=== PATIENT | male | born 1990 | race Caucasian/White ===

== ENCOUNTER 2016-05-27 22:32 | Emergency (ER) | payer BC ==
[2016-05-27 22:40] VITALS: RESP 18; TEMP 99; O2SAT 97
[2016-05-27] MEDS ORDERED: ONDANSETRON 4 MG/2 ML VIAL IVP ONE ×2 (23:02→23:56)
[2016-05-27] MEDS ORDERED: NS 1,000 ML IV ONE (23:02)
--- NOTE | 2016-05-27 23:04 | EDPHY ---
H & P Stated Complaint: pt c/o n/v/d x 3 days, abd pain beginning today Source: Patient Exam Limitations: No limitations - Medical/Surgical History Hx Asthma: No Hx Chronic Respiratory Disease: No Hx Diabetes: No Hx Cardiac Disease: No Hx Renal Disease: No Hx Cirrhosis: No Hx Alcoholism: No Hx HIV/AIDS: No Hx Splenectomy or Spleen Trauma: No Other PMH: BP d/o with psychotic features, QUOC, PTSD. Hx rhinoplasty for deviated septum, arm fx as child, vasovagal syncope, FAS per pt report. - Social History Smoking Status: Current every day smoker HPI/ROS: CHIEF COMPLAINT: Nausea vomiting, abdominal discomfort HISTORY OF PRESENT ILLNESS: flu-like symptoms earlier this week that have now become nausea and vomiting with some abdominal discomfort. He feels that he cannot keep anything down including liquids over the past 2 days per he has no chest pain or shortness of breath. No cough. He does have body aches without headache. He feels that he has something wrong and cannot explain it. No neck pain or stiffness. No trauma or injury. No bloody stools or emesis. He notes persistent vomiting matter what he tries to eat or drink. No other Predictable modifying factors. No other associated complaints or modifying factors. REVIEW OF SYSTEMS: Ten systems reviewed and are negative unless otherwise noted in the HPI EXAMINATION General Appearance: Alert, no distress Head: normocephalic, atraumatic Eyes: Pupils equal and round, no conjunctival pallor or injection. EOMs intact ENT, Mouth: Mucous membranes moist. Uvula midline. No lesions or edema. Neck: Normal inspection, supple, non-tender Respiratory: Lungs are clear to auscultation . No wheezing, rhonchi or crackles. Cardiovascular: Regular rate and rhythm . no murmur. Pulses intact distally. Gastrointestinal: Abdomen is soft and nontender . No CVA tenderness. No tympany. No rigidity. Nonacute abdomen. Neurological: A&O, nonfocal, normal gait Skin: Warm and dry, no rash Extremities: Nontender, no pedal edema Psychiatric: Mood and affect normal DIFFERENTIAL DIAGNOSES: Including but not limited to influenza, viral illness, nausea vomiting, dehydration, electrolyte disturbance, cholecystitis, gastritis MDM: 11:00 p.m. flu-like symptoms including nausea vomiting or body aches with a completely normal examination. Vital signs are well within normal limits. He is afebrile and nontoxic in appearance. Very complex history and personality without any acute concerns or findings on examination. Laboratory studies have been ordered to verify electrolyte status given his vomiting. I suspect this will be a viral illness and we will provide IV fluid resuscitation 11:45 p.m. notified that the patient is actively vomiting. I have ordered additional Zofran 4 mg IV as well as Phenergan 25 mg IM. Will monitor and administer a 2nd L of IV fluid. Laboratory studies are within normal limits without any abnormalities. 12:45 a.m. I have re-evaluated the patient. He is nauseated but not actively vomiting at this time. He says the medications are helping but not completely. He does complain of epigastric and generalized pain at this time. He did not inform me of this earlier, he says that it is difficult for him to quantify this pain. When distracted is examination appears benign, but I have ordered a CT abdomen and pelvis with contrast. CT scan of the abdomen and pelvis was read as normal. No acute findings. He remains nauseated but is not vomiting. He is asking to try some crackers and liquids. I discussed discharge home versus admission for observation and IV fluid resuscitation. The patient declined admission and asked to be discharged home. I do feel he is stable for doing so, and I do not feel he needs to be admitted to the hospital at this time. He will be discharged home with 2 forms of nausea medication and instructions to follow up with primary care physician. He is also instructed to return to the ER for greater than 24 hours of vomiting without keeping liquids down. He is also instructed to return to the ER for worsening pain or persistent fever. He is comfortable with this plan and discharged home in stable condition. He is tolerating liquids prior to discharge home. SUPERVISION: Patient was evaluated in conjunction with the supervising physician. Please see their note for details. (Rudi Hutchins) Constitutional: Initial Vital Signs Temperature (C) 99.0 F 05/27/16 22:37 Heart Rate 67 05/27/16 22:37 Respiratory Rate 18 05/27/16 22:37 Blood Pressure 162/88 H 05/27/16 22:37 O2 Sat (%) 97 05/27/16 22:37 O2 Delivery Mode Room Air Allergies/Adverse Reactions: amoxicillin Allergy (Verified 05/27/16 22:42) diphenhydramine HCl [From Benadryl] Allergy (Verified 05/27/16 22:40) guaifenesin [From Robitussin] Allergy (Verified 05/27/16 22:40) antipsychotics Allergy (Uncoded 05/27/16 22:40) Home Medications: Medication Instructions Recorded [facility] [Eskalith Cr 900 mg PO DAILY #60 tab 03/28/16 450 mg (*)] Zyprexa 05/27/16 Ondansetron Odt [Zofran Odt 4 mg 4 mg PO Q6 PRN #12 tab 05/28/16 (*)] Promethazine HCl [Phenergan 25mg 25 mg PO Q8 PRN #12 tab 05/28/16 (*)] Medical Decision Making ED Course/Re-evaluation: PHYSICIAN DOCUMENTATION: The patient was evaluated and managed by the Physician Laminator Hand. My co- signature indicates that I have reviewed this chart and I agree with the findings and plan of care as documented. I am the secondary supervising physician. (Shirin Malik) - Data Points Laboratory Results: Laboratory Results 05/27/16 23:20 05/27/16 23:20 Medications Given: Discontinued Medications Sodium Chloride (Ns) 1,000 mls @ 0 mls/hr IV ONCE ONE PRN Reason: Wide Open Stop: 05/27/16 23:03 Last Admin: 05/27/16 23:24 Dose: 1,000 mls Sodium Chloride (Ns) 1,000 mls @ 0 mls/hr IV ONCE ONE PRN Reason: Wide Open Stop: 05/28/16 00:43 Last Admin: 05/28/16 00:44 Dose: 1,000 mls Ondansetron HCl (Zofran) 4 mg IVP EDNOW ONE Stop: 05/27/16 23:03 Last Admin: 05/27/16 23:25 Dose: 4 mg Ondansetron HCl (Zofran) 4 mg IVP EDNOW ONE Stop: 05/27/16 23:57 Last Admin: 05/28/16 00:05 Dose: 4 mg Promethazine HCl (Phenergan) 25 mg IM EDNOW ONE Stop: 05/27/16 23:57 Last Admin: 05/28/16 00:05 Dose: 25 mg Promethazine HCl (Phenergan 25 Mg Prepack #4) 1 btl TAKEHOME EDNOW ONE Stop: 05/28/16 02:10 Last Admin: 05/28/16 02:19 Dose: 1 btl Departure - Departure Disposition: Home, Routine, Self-Care Clinical Impression: Flu-like symptoms, Bipolar 1 disorder, mixed, mild, Abdominal pain Nausea with vomiting, unspecified Qualifiers: Vomiting type: unspecified Vomiting Intractability: non-intractable Qualified Code(s): R11.2 - Nausea with vomiting, unspecified Condition: Good Instructions: Promethazine (By mouth), Ondansetron (By mouth), Gastroenteritis (ED), Acute Nausea and Vomiting (ED) Additional Instructions: follow-up with primary care physician for definitive care. Referrals: LISE ADLER [Other] - As per Instructions Prescriptions: Ondansetron Odt [Zofran Odt 4 mg (*)] 4 mg PO Q6 PRN #12 tab PRN Reason: Nausea/Vomiting, Use 1st Promethazine HCl [Phenergan 25mg (*)] 25 mg PO Q8 PRN #12 tab PRN Reason: Nausea/Vomiting, Use 1st
[2016-05-27 23:35] LABS: % IMMATURE GRANULYOCYTES 0.5 % (0.0-1.1); ABSOLUTE IMMATURE GRANULOCYTES 0.04 10^3/uL (0.00-0.10); ADD DIFF? NO; ADD MORPH? NO; ADD SCAN? NO; ATYPICAL LYMPHOCYTE FLAG 10 (0-99); FRAGMENT RBC FLAG 0 (0-99); HEMATOCRIT 48.1 % (40.0-51.0); HEMOGLOBIN 16.1 g/dL (13.7-17.5); LEFT SHIFT FLG 0 (0-99); LIPEMIA HEMOLYSIS FLAG 80 (0-99); MEAN CELL HEMOGLOBIN 30.6 pg (27.9-34.1); MEAN CELL HEMOGLOBIN CONCENTR. 33.5 g/dL (32.4-36.7); MEAN CELL VOLUME 91.4 fL (81.5-99.8); MEAN PLATELET VOLUME 9.1 fL (8.7-11.7); PLATELET CLUMPS FLAG 10 (0-99); PLATELET COUNT 244 10^3/uL (150-400); RED BLOOD CELL COUNT 5.26 10^6/uL (4.40-6.38); RED CELL DISTRIBUTION WIDTH 14.3 % (11.5-15.2)
[2016-05-27 23:49] LABS: ALANINE AMINOTRANSFERASE 32 IU/L (21-72); ALBUMIN 5.1 g/dL (3.5-5.0); ALKALINE PHOSPHATASE 91 IU/L (38-126); AMYLASE 47 IU/L (30-110); ANION GAP 14 mEq/L (8-16); ASPARTATE AMINOTRANSFERASE 42 IU/L (17-59); BILIRUBIN,TOTAL 1.1 mg/dL (0.1-1.4); BILIRUBIN-CONJUGATED 0.4 mg/dL (0.0-0.5); BILIRUBIN-UNCONJUGATED 0.7 mg/dL (0.0-1.1); CALCIUM 10.2 mg/dL (8.5-10.4); CARBON DIOXIDE 26 mEq/l (22-31); CHLORIDE 102 mEq/L (97-110); CREATININE 0.9 mg/dL (0.7-1.3); GLOMERULAR FILTRATION RATE > 60; GLUCOSE 107 mg/dL (70-100); POTASSIUM 3.7 mEq/L (3.5-5.2); SODIUM 142 mEq/L (134-144); TOTAL PROTEIN 8.2 g/dL (6.3-8.2)
[2016-05-27 23:53] LABS: LITHIUM < 0.2 mEq/L (0.6-1.2)
[2016-05-27] MEDS ORDERED: PROMETHAZINE HCL 25 MG/ML INJ IM ONE (23:56)
[2016-05-28] MEDS ORDERED: NS 1,000 ML IV ONE (00:42)
[2016-05-28] MEDS ORDERED: IOPAMIDOL (ISOVUE-300) 100 ML BTL IV ONE (00:45)
[2016-05-28] MEDS ORDERED: PROMETHAZINE 25 MG PREPACK #4 BTL TAKEHOME ONE (02:09)
[2016-05-28 02:28] VITALS: BP 161/100
[2016-05-28 02:29] VITALS: PULSE 72
== END 2016-05-28 02:29 | disposition home or self-care (01) ==
DX: R11.2 Nausea with vomiting, unspecified (principal); F31.61 Bipolar disorder, current episode mixed, mild; J11.1 Influenza due to unidentified influenza virus with other respiratory manifestations; R10.9 Unspecified abdominal pain; F17.200 Nicotine dependence, unspecified, uncomplicated
CPT/HCPCS: 96374; J2405; J2550; Q9967

== ENCOUNTER 2016-07-16 17:26 | Inpatient (IN) | payer BC ==
[2016-07-16] MEDS ORDERED: LORazepam 2 MG/ML INJ ONE (17:35)
[2016-07-16] MEDS ORDERED: HALOPERIDOL LACT 5 MG/ML INJ ONE (17:35)
[2016-07-16] MEDS ORDERED: diphenhydrAMINE 25 MG CAP PO ONE (17:35)
--- NOTE | 2016-07-16 18:00 | EDPHY ---
H & P Source: Police, EMS, Other (Health care worker [employer] Owens) - Medical/Surgical History Hx Asthma: No Hx Chronic Respiratory Disease: No Hx Diabetes: No Hx Cardiac Disease: No Hx Renal Disease: No Hx Cirrhosis: No Hx Alcoholism: No Hx HIV/AIDS: No Hx Splenectomy or Spleen Trauma: No Other PMH: BP d/o with psychotic features, QUOC, PTSD. Hx rhinoplasty for deviated septum, arm fx as child, vasovagal syncope, FAS per pt report. - Social History Smoking Status: Current every day smoker Time Seen by Provider: 07/16/16 17:50 HPI/ROS: This is a 25-year-old male brought in to the emergency department by EMS and police. Police date they were called to the patient's home by a friend, abelino was concerned and went to check in on him patient was in bath tub naked ranting. Police said at the time of their arrival patient was renting stated Edy wanted him to cut his neck and cut his testicles off to kill himself because he was worthless loser. There was also mental health worker with edelmira Owens with [employer] at the scene, she reports patient has a history of PTSD, bipolar, depression and schizophrenia supposed to be on lithium unknown how long he has been off the medication. ED arrival patient acting erratic, using foul language, as I was attempting to speak with patient he spit and lunged at me. Patient was placed in 4 point restraints. At this time no medication was given patient yelled he was allergic to Haldol, Ativan, droperidol. Unable to obtain review of systems due to the patient's erratic behavior and not wanting to answer any of my questions. I did discuss with patient to make a plan that if he can calm down he would be released from 4 point restraints. Unable to reason with patient at this time (Rachael Finley) - Physical Exam Exam: 1935 able to evaluate patient CONSTITUTIONAL: patient appeared well nourished, non-ill appearing and normally developed. No acute distress. Vital signs as documented. HEENT: Normocephalic atraumatic NECK: Supple FROM without pain RESP: Non-labored resp effort CARDIAC: RRR w/o murmur, benson. Normal S1/S2 GI: Abd soft NTTP NEURO: Awake alert oriented x3, patient does go on a rant from different subjects EXTREMITIES: FROM without pain or difficulty SKIN: Warm and dry, no lacerations no injuries noted PSYCH: Flat affect, calm, no distress. (Rachael Finley) Constitutional: Initial Vital Signs Temperature (C) 36.8 C 07/16/16 17:26 Heart Rate 73 07/16/16 17:26 Respiratory Rate 16 07/16/16 17:26 Blood Pressure 125/82 H 07/16/16 17:26 O2 Sat (%) 97 07/16/16 17:26 O2 Delivery Mode Room Air Allergies/Adverse Reactions: amoxicillin Allergy (Verified 05/27/16 22:42) diphenhydramine HCl [From Benadryl] Allergy (Verified 05/27/16 22:40) guaifenesin [From Robitussin] Allergy (Verified 05/27/16 22:40) antipsychotics Allergy (Uncoded 05/27/16 22:40) Home Medications: Medication Instructions Recorded [facility] [Eskalith Cr 900 mg PO DAILY #60 tab 03/28/16 450 mg (*)] Zyprexa 05/27/16 Medical Decision Making ED Course/Re-evaluation: 1900: The patient re-evaluation, patient calm, restraints removed. reports auditory hallucinations voices are telling him to just kill himself. Patient not making sense with communication. 1910: medically cleared for psych 1924: Patient requesting Zyprexa 10mg, which he normally takes with lithium when he does take lithium. 1935: [facility] will evaluate in the morning due to patient stating he did take acid. [facility] wants patient to be clear prior to evaluation (Rachael Finley) 0550AM: No acute events overnight. Patient on M1 hold. Patient pending placement. With 7:00 a.m. patient turned over to Dr. Gardner (Rodri Valdez) This patient was signed over to me at shift change at 7:00 a.m. this morning. We have finally found appropriate placement and I filled out the appropriate transfer paperwork and this patient will be taken to [address] (Kristopher Gardner) Differential Diagnosis: Differential diagnosis considered not limited to homicidal ideation, suicide attempt and drug overdose (Rachael Finley) - Data Points Laboratory Results: Laboratory Results 07/16/16 17:55 07/16/16 17:55 Medications Given: Discontinued Medications [facility] (Eskalith Cr) 900 mg PO EDNOW ONE Stop: 07/17/16 13:09 Last Admin: 07/17/16 13:42 Dose: 900 mg Olanzapine (Olanzapine) 10 mg PO ONCE ONE Stop: 07/16/16 19:26 Last Admin: 07/16/16 19:28 Dose: 10 mg Olanzapine (Zyprexa Zydis) 10 mg PO EDNOW ONE Stop: 07/17/16 13:43 Last Admin: 07/17/16 13:43 Dose: 10 mg Departure - Departure Disposition: [facility] IP Clinical Impression: Bipolar 1 disorder with moderate stacey, Suicidal ideation Condition: Fair Referrals: Patient,NotPresent [Unknown] - As per Instructions
[2016-07-16 18:59] LABS: % IMMATURE GRANULYOCYTES 0.3 % (0.0-1.1); ABSOLUTE IMMATURE GRANULOCYTES 0.02 10^3/uL (0.00-0.10); ADD DIFF? NO; ADD MORPH? NO; ADD SCAN? NO; ATYPICAL LYMPHOCYTE FLAG 0 (0-99); FRAGMENT RBC FLAG 0 (0-99); HEMATOCRIT 51.6 % (40.0-51.0); HEMOGLOBIN 17.2 g/dL (13.7-17.5); LEFT SHIFT FLG 0 (0-99); LIPEMIA HEMOLYSIS FLAG 80 (0-99); MEAN CELL HEMOGLOBIN 30.3 pg (27.9-34.1); MEAN CELL HEMOGLOBIN CONCENTR. 33.3 g/dL (32.4-36.7); MEAN PLATELET VOLUME 9.8 fL (8.7-11.7); PLATELET CLUMPS FLAG 0 (0-99); PLATELET COUNT 222 10^3/uL (150-400); RED BLOOD CELL COUNT 5.67 10^6/uL (4.40-6.38); RED CELL DISTRIBUTION WIDTH 13.3 % (11.5-15.2)
[2016-07-16 19:01] LABS: ANION GAP 16 mEq/L (8-16); CALCIUM 10.3 mg/dL (8.5-10.4); CARBON DIOXIDE 20 mEq/l (22-31); CHLORIDE 108 mEq/L (97-110); CREATININE 0.9 mg/dL (0.7-1.3); ETHANOL SERUM < 10 mg/dL (0-10); GLOMERULAR FILTRATION RATE > 60; GLUCOSE 114 mg/dL (70-100); POTASSIUM 3.7 mEq/L (3.5-5.2); SODIUM 144 mEq/L (134-144)
[2016-07-16 19:04] LABS: LITHIUM < 0.2 mEq/L (0.6-1.2)
[2016-07-16] MEDS ORDERED: OLANZapine 10 MG TAB PO ONE (19:25)
[2016-07-16] MEDS ORDERED: OLANZapine DISINTEGR 10 MG TAB ONE (19:26)
[2016-07-17] MEDS ORDERED: LITHIUM CARBONATE ER 450 MG TAB PO ONE (13:08)
[2016-07-17] MEDS ORDERED: OLANZapine DISINTEGR 10 MG TAB ONE (13:31)
[2016-07-17] MEDS ORDERED: OLANZapine DISINTEGR 10 MG TAB PO ONE (13:42)
[2016-07-17] MEDS ORDERED: MAGNESIUM HYDROXIDE 30 ML UDCUP PO PRN (17:19)
[2016-07-17] MEDS ORDERED: NICOTINE POLACRILEX 2 MG GUM B PRN (17:19)
[2016-07-17] MEDS ORDERED: MAG HYDROX/AL HYDROX/SIMETH 30 ML UDCUP PO PRN (17:19)
[2016-07-17] MEDS ORDERED: OLANZapine 5 MG TAB PO PRN (17:26)
[2016-07-17] MEDS ORDERED: LITHIUM CARBONATE ER 450 MG TAB PO SCH (21:00)
[2016-07-17] MEDS ORDERED: OLANZapine DISINTEGR 10 MG TAB PO SCH (21:00)
[2016-07-18] MEDS ORDERED: LITHIUM CARBONATE ER 450 MG TAB PO SCH (09:00)
[2016-07-18] MEDS: ACETAMINOPHEN 325 MG TAB PO PRN (10:47)
[2016-07-18] MEDS: LITHIUM CARBONATE ER 450 MG TAB PO SCH ×2 (10:48→20:57)
[2016-07-18] MEDS: OLANZapine DISINTEGR 10 MG TAB PO PRN ×2 (13:29→17:39)
--- NOTE | 2016-07-18 14:31 | GHP ---
[f rep st] HISTORY AND PHYSICAL DATE OF ADMISSION: 07/16/2016 CHIEF COMPLAINT: Agitation. HISTORY OF PRESENT ILLNESS: A 25-year-old male, with a history of PTSD, bipolar, depression, and sc hizophrenia, who was supposed to be taking lithium. He was found by a roommate/friend naked in his tub ranting and behaving unusually. Police were called and the patient was brought by EMS to the em ergency department for evaluation. In the emergency department, the patient was making nonsensical statements about Satan, and was cristopher rly disoriented. Patient was stabilized and restrained, and transferred for inpatient psychiatric e valuation. Upon my evaluation, the patient is refusing to be interviewed. Per nursing, he is not c omplaining of any chest pain, shortness of breath, abdominal discomfort, nausea, vomiting, diarrhea, urinary troubles, headache, or muscle aches or pains, PAST MEDICAL HISTORY: 1. PTSD. 2. Schizophrenia. SOCIAL HISTORY: Positive for tobacco. FAMILY HISTORY: Unobtainable as the patient would not be interviewed. PHYSICAL EXAMINATION: VITAL SIGNS: On review, 111/67, heart rate 73, respiratory rate 14, 96% on r oom air, 36.5. VISUAL INSPECTION: The patient is extremely agitated, yelling, screaming, refusing to be interviewed. He is moving all 4 extremities without complication. Appears to not be oriented appropriately. DATA: White count 7.4, hematocrit 51.6, platelets of 222. Creatinine is 0.9. Urinary tox screen s hows a lithium level of less than 0.2. ASSESSMENT AND PLAN: This is a 25-year-old male with a history of schizophrenia, presenting with de lusions about Satan. 1. Schizophrenia. Patient is on the inpatient psychiatry henson and will have his psychiatric condit ion managed primary by the psychiatric team. On preliminary view, there appears to be no reversible medical issues at this time. We will continue to follow along. 2. Prophylaxis. None, and the patient is ambulating. 3. Diet. Regular. DISPOSITION: Will be based on takes psychiatric stabilization. I have discussed the case with the psychiatric nurse on the floor. We will re-round on the patient tomorrow, and again re-attempt inte rview. /[id number]/MODL
[2016-07-18] MEDS: LORazepam 0.5 MG TAB PO PRN (17:39)
--- NOTE | 2016-07-19 08:08 | BAPA ---
[f rep st] ADMISSION PSYCHIATRIC ASSESSMENT PATIENT IDENTIFICATION: The patient as a 25-year-old, single, white male who is currently unemployed, chronically supported financially by his parents who live in [place]. The patient has lived in the [facility] for several years. He has a chronic history of psychiatric disturbance, previously diagnosed as suffering a major psychotic disorder on the spectrum between Bipolar Disorder and Schizoaffective Disorder. He is currently an active outpatient enrolled in the [facility], as well as followed by a community psychiatrist named Dr. Herrmann. Patient's psychotherapist with [facility] is named Santosh Church. HISTORY OF PRESENT ILLNESS: It is unclear when the patient was last at baseline stability. We do know his home medications included lithium ER dosed at 900 mg q.a.m. and 450 mg at bedtime. We do know the patient has an extended history for poor compliance with taking medications in the community. On the day prior to admission, the patient was found in a psychotically disorganized state and naked in his bathtub by a friend. He was noted to be screaming loudly. The friend called 911 and [place] police arrived and were told by the patient that "Edy wants me to cut my neck, cut my testicles off because I am a worthless loser." A mental health worker, Lucy Schwartz, from the [facility] was also present at the time of the crisis in the patient's home. She reported to the police that the patient had a long-standing psychiatric history which included diagnoses of Posttraumatic Stress Disorder and Bipolar Disorder. The patient was brought by the police to the [facility] ED where he presented as agitated, disorganized, using foul language, intermittently spitting at the ER staff and threatening physical assault. He initially required 4-point restraints to regain behavioral control. In the emergency room, he was medicated with Lithobid 900 mg p.o. x1 and Zyprexa 10 mg p.o. x2. He was able to be released from restraints and cooperatively complete the medical assessment and psychiatric assessment with [facility]. His physical exam was unremarkable with no evidence for focal or systemic acuity other than his regressed mental status. Lab screens included a CBC, BMP, toxic screen, and blood alcohol. Lab results were unremarkable and were within normal limit. Serum lithium was measured at less than 0.2. During his consultation with [facility] staff, the patient commented that he had utilized LSD and alcohol 1-2 days prior to coming to the emergency room. On presentation to the [facility] service delivery consultant, the patient presented with lability of affect, loosened associations, rambling speech, and thought disorganization. He was deemed to be gravely disabled and sent on to on an M1 hold. PAST PSYCHIATRIC HISTORY: The patient has a chronic syndrome and treatment history with an onset at age 8 as stated in previous records. His initial psychotic decompensation occurred at age 18 when he was hospitalized at [facility] in [place], [place]. Since that time, the patient has had multiple inpatient hospitalizations and presented as chronically unstable in the community, noncompliant with community care, including inconsistent use of prescribed medications. The patient's adoptive family consisting of 2 parents and his sister continue to live in the [facility]. The patient came to the [facility] approximately 2 years ago and has been living a marginal life for the past several years. He has been an active outpatient with the [facility] and Dr. Herrmann since shortly after arriving in the [facility]. He has been hospitalized on [address] [place] [address] on four previous occasions, including November of 2014, February of 2015, December of 2015, and most recently March of 2016. All hospitalizations were for acute manic, psychotic decompensations. He has been discharged on Risperdal 6 mg on one occasion and more recently in December and March of 2016 discharged on lLithium only. He has utilized court-ordered medications on several occasions in several of his [address] [place] [address] inpatient courses of treatment. His history since his last discharge from [address] [place] [address] in March of 2016 will be clarified in intake phase. MEDICAL HISTORY: The patient has no active medical problems. S/P rhinoplasty for deviated septum in childhood, vasovagal syncope at age 14, remote history of arm fracture. ALLERGIES: Amoxicillin, Benadryl, guaifenesin, question Haldol, question Ativan. REVIEW OF SYSTEMS: Negative. SUBSTANCE ABUSE HISTORY: The patient has used various substances sporadically. He did report in the emergency room that he had utilized LSD and alcohol 1-2 days prior to admission which was not substantiated by direct exam or lab screens. The patient's substance abuse history will be further clarified in the intake phase. LEGAL HISTORY: The patient has a known arrest for trespassing in March of 2016; further clarification in intake phase. PERSONAL HISTORY/FAMILY HISTORY: The patient was adopted at age 2 weeks from a dysfunctional biologic mother. The patient was adopted and raised in an upper middle class family in [place], [place]. Adoptive family continues to consist of his parents who remain and living in [place] and a 30-year- old adoptive sister. The patient attended schools using special educational programs. He had reportedly been diagnosed with Attention Deficit Disorder in childhood along with a question of autistic trait problems. The patient states he did attend a "therapeutic high school" in [place] to obtain his high school degree. The patient's parents continue to support him financially as he has no disability income. He has lived in the [facility] for the last 2 years in what appears to be marginal manner with no consistent employment. ADMISSION MENTAL STATUS EXAM: The patient presents as a small statured young male who is casually dressed, cooperates with his initial contact with me. Gait and station are within normal limits. The patient presents with pressured speech, lability of affect, irritability, loosened associations. The patient is distractible with impaired attention and concentration secondary to his hyper aroused mental status. Thought content includes ideas of reference, as well as oscar paranoid ideation. He states he will cooperate with the hospitalization to "get the things done I need to do." The patient hands me a punch list of treatment goals which include the need to resume his [place] at 1350 mg daily and to be discharged directly home with no intervening step-down between discharge from the hospital and returning to his apartment. He does cooperate with my request to reach Dr. Herrmann and his [facility] family caseworker, Santosh Bush ([phone]). The patient's intelligence appears average. He is alert and oriented x3, but distractible and unable to sustain a verbal focus other than for a few seconds. At the time of contact, he remains in impulse control. His thought process is with minimal insight. Patient does recognize he is in a disturbed state and currently needs inpatient care. The patient's ADL functions appear to be intact and appropriate for his age. There are no overt signs of intoxication and/or withdrawal. The patient does reiterate that he had used LSD and alcohol briefly several days prior to admission. Session focuses on detail on current mental status, as well as attempting an overview of the patient's syndromal history and personal life history. FORMULATION: The patient presents as a 25-year-old, single, white male with an extremely chronic an unstable history consistent with a major psychotic disorder on the spectrum of Bipolar Disorder and Schizoaffective Disorder. He reportedly had been diagnosed with ADD in childhood, as well as was thought to have autistic elements along with trait problems associated with dyssocial behaviors by remote workup. He is currently admitted for an acute psychotic decompensation thought to be consistent with noncompliance with his home medication lithium. It is not clear if dynamic and/or circumstantial stressors have contributed to this decompensation. We will expedite obtaining collateral intake from his community clinicians to fill out the present illness history, details of chronic syndrome and treatment history, and inpatient treatment goals of restabilizing his mental status to a level allowing discharge. ADMISSION DIAGNOSES: AXIS I: Bipolar Spectrum Disorder, mixed, manic/psychotic decompensation on admission. Rule out residual drug intoxication secondary to using a mix of LSD and alcohol prior to admission. The patient does not appear to be intoxicated on initial exam. Rule out Polydrug Use Disorder by history. History of diagnosed ADD by remote workup. History of Autism by remote workup. AXIS II: Deferred. AXIS III: No active medical problems. S/P rhinoplasty for deviated septum, vasovagal syncopal event at age 14, remote history of arm fracture. AXIS IV: Noncompliance with lithium ER dosed at 1350 mg daily in maintenance regimen; rule out contributing dynamic and/or circumstantial stressors. AXIS V: Admission Global Assessment of Functioning 30. TREATMENT PLAN: 1. Nursing: Complete admission assessment. Monitor patient for safety. Reinforce compliance with cares and medications. Comfort patient to the unit milieu and group program for his participation when sufficiently stable. 2. Psychiatry: Completed admission assessment. Provide daily E/M contacts with goals of completing diagnostic workup, assessing and managing psychoactive medication needs, providing brief reintegrated psychotherapy contacts, preparing patient for discharge to definitive discharge planning with links in place at discharge. 3. Admission medical consultation: Pending. 4. Clinical Coordinator: Daily contacts to expand the database. Contact relevant collaterals to complete information workup. Formulate definitive discharge planning with links prepared at discharge. 5. Medications: Resume the patient's lithium dosing at 900 mg q.a.m. and 450 mg at bedtime. Will add Zydis/Zyprexa at 10 mg q.4 hours p.r.n. Assess in first phase, including contacting the patient's prescribing psychiatrist, Dr. Herrmann. 6. Primary discharge goals: Stabilize mental status sufficient for discharge. Complete diagnostic workup to focus the patient on relevant goals with links to definitive discharge resources at the time of discharge. ALL patient with sustaining community treatment post discharge. /[id number]/MODL MTDD
[2016-07-19] MEDS: LITHIUM CARBONATE ER 450 MG TAB PO SCH ×2 (09:30→20:18)
[2016-07-19] MEDS ORDERED: LORazepam 2 MG/ML INJ IM PRN (11:08)
[2016-07-19] MEDS ORDERED: OLANZapine 10 MG/2 ML VIAL IM PRN (11:08)
--- NOTE | 2016-07-19 11:13 | SOAPPROG ---
SOAP Progress Note Assessment/Plan: Assessment: Plan: 07/19/16 11:11 Will start E-meds due to verbal and physical aggression. Give Zyprexa and Ativan IM if he refuses PO. Subjective: Pt seen due to severe escalation in behaviors. Screaming obscenities in halls and at nursing station. Staff and myself unable to verbally deescalate behaviors. Verbally and physically aggressive to me, throwing a journal and screaming. Refuses all medications including prn at this time. Objective: Vital Signs Temp Pulse Resp BP Pulse Ox 36.6 C 63 12 95/51 L 96 07/19/16 06:00 07/19/16 06:00 07/19/16 06:00 07/19/16 06:00 07/19/16 06:00 MSE: Disheveled, agitated, hostile, screaming obscenities. Affect is labile, irritable. TP is disorganized. TC reveals paranoid thoughts that we are trying to "poison my body." Threatens to "fuck you up" to me when verbal deescalation attempted. Throws journal in threatening manner. - Time Spent With Patient Time Spent With Patient: 15" - Pending Discharge Pending Discharge Within 24 Hours: No Pending Discharge Within 48 Hours: No ICD10 Worksheet Patient Problems: Problems Problem Status Onset Bipolar 1 disorder with moderate stacey Acute Suicidal ideation Acute Bipolar disorder Acute Suicidal ideation Acute
[2016-07-19] MEDS: OLANZapine DISINTEGR 10 MG TAB PO PRN (11:20)
[2016-07-19] MEDS ORDERED: LORazepam 1 MG TAB ONE (11:45)
[2016-07-19] MEDS ORDERED: LORazepam 1 MG TAB PO ONE (12:00)
--- NOTE | 2016-07-19 12:44 | SOAPPROG ---
SOAP Progress Note Assessment/Plan: Assessment: Plan: 07/19/16 12:27 DAY UPDATE: Nursing reports that pt slept but remained labile, verbally abusive, pressured, with oscar IOR c/w with residual manic psychosis; this aM pt required use of seclusion and e-meds ( Zyorexa 10/Ativan 2 mg po to calm and reintegrate as he became acutely threatening and dyscontrolled, again evidencing oscar psychosis. Dr Nova assisted in the intervention as he was in the initial engagement with the patient - see his preceding PN ON EXAM: on contact with pt in the seclusion Room with Security, pt evidenced the PI and hyperaroused aggressive state prior to receiving the e-meds but did cooperate with the po meds and is in the process of quieting. INTAKE: spoke at length with pt's therapist/adult protective caseworker Santosh Blanc who described pt as having a chronically unstable history in his community life, not complying with medications post his many inpt DC's prior to coming to [place] from his homestate of [place] and since being in [place]. Pt's instability is aggravated by his severe THc Use Disorder. Santosh and the community treatment Team have considered collaborating with various inpt Teams to place pt on LTC and COM but previous inpt Teams have not been willing to proceed with extending STC and COM at [place]. We also discussed the possibility of probating the pt's treatment plan by Court order. Santosh will explore this with the pt's packaging design engineer representing the pt in a pending trespassing charge. Per the input pt' s adoptive parents in [place] have supported these legal strategies. ASSESSMENT/PLAN: residual manic/psychotic acuity/ will add Zydis Zyprexa 5 mg hs to standing meds and keep the e-med order initiated by Dr Nova in effect; CP interventions d/w Nursing; will request COM Objective: Vital Signs Temp Pulse Resp BP Pulse Ox 36.7 C 71 16 90/55 L 94 07/19/16 12:13 07/19/16 12:13 07/19/16 12:13 07/19/16 12:13 07/19/16 12:13 ICD10 Worksheet Patient Problems: Problems Problem Status Onset Bipolar 1 disorder with moderate stacey Acute Suicidal ideation Acute Bipolar disorder Acute Suicidal ideation Acute
[2016-07-19] MEDS: LORazepam 0.5 MG TAB PO PRN (15:45)
[2016-07-19] MEDS: OLANZapine 5 MG TAB PO SCH (20:18)
--- NOTE | 2016-07-20 06:55 | SOAPPROG ---
SOAP Progress Note Assessment/Plan: Assessment: Plan: 07/19/16 12:27 DAY UPDATE: Nursing reports that pt slept but remained labile, verbally abusive, pressured, with oscar IOR c/w with residual manic psychosis; this AM pt required use of seclusion and e-meds ( Zyprexa 10/Ativan 2 mg po) to calm and reintegrate as he became acutely threatening and dyscontrolled, again evidencing osacr psychosis. Dr Nova assisted in the intervention as he was in the initial engagement with the patient - see his preceding PN ON EXAM: on contact with pt in the Seclusion Room with Security, pt evidenced the PI and hyperaroused aggressive state prior to receiving the e-meds but did cooperate with the po meds and is in the process of quieting. INTAKE: spoke at length with pt's therapist/casey saw operator Santosh Blanc who described pt as having a chronically unstable history in his community life, not complying with medications post his many inpt DC's prior to coming to [place] from his home state of [place] and since being in [place]. Pt's instability is aggravated by his severe THC Use Disorder. Santosh and the community treatment Team have considered collaborating with various inpt Teams to place pt on LTC and COM but previous inpt Teams have not been willing to proceed with extending STC and COM at [place]. We also discussed the possibility of probating the pt's treatment plan by Court order. Santosh will explore this with the pt's patent prosecution attorney representing the pt in a pending trespassing charge. Per the input pt' s adoptive parents in [place] have supported these legal strategies. ASSESSMENT/PLAN: residual manic/psychotic acuity/ will add Zydis Zyprexa 5 mg hs to standing meds and keep the e-med order initiated by Dr Nova in effect; CP interventions d/w Nursing; will request CO 07/22/16 08:42 DAY ' UPDATE: Objective: Vital Signs Temp Pulse Resp BP Pulse Ox 36.2 C 66 14 105/61 96 07/20/16 06:00 07/20/16 06:00 07/20/16 06:00 07/20/16 06:00 07/20/16 06:00 ICD10 Worksheet Patient Problems: Problems Problem Status Onset Bipolar 1 disorder with moderate stacey Acute Suicidal ideation Acute Bipolar disorder Acute Suicidal ideation Acute
[2016-07-20] MEDS: LITHIUM CARBONATE ER 450 MG TAB PO SCH ×2 (09:13→19:29)
[2016-07-20] MEDS: LORazepam 0.5 MG TAB PO PRN (11:09)
[2016-07-20] MEDS: OLANZapine DISINTEGR 10 MG TAB PO PRN (11:09)
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
[2016-07-20] MEDS: OLANZapine 5 MG TAB PO SCH (19:30)
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
[2016-07-21] MEDS: LITHIUM CARBONATE ER 450 MG TAB PO SCH ×2 (08:27→19:26)
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
[2016-07-21 16:06] LABS: LITHIUM 0.9 mEq/L (0.6-1.2)
[2016-07-21] MEDS: OLANZapine DISINTEGR 10 MG TAB PO PRN (18:01)
[2016-07-21] MEDS: OLANZapine 5 MG TAB PO SCH (19:27)
[2016-07-22] MEDS: LITHIUM CARBONATE ER 450 MG TAB PO SCH ×2 (08:11→19:13)
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
[2016-07-22] MEDS: OLANZapine DISINTEGR 10 MG TAB PO SCH (19:13)
[2016-07-23] MEDS: LITHIUM CARBONATE ER 450 MG TAB PO SCH ×2 (07:09→20:47)
--- NOTE | 2016-07-23 15:42 | SOAPPROG ---
SOAP Progress Note Assessment/Plan: Assessment: Plan: 07/19/16 11:11 Will start E-meds due to verbal and physical aggression. Give Zyprexa and Ativan IM if he refuses PO. 07/23/16 15:41 Much improved overall. CCM. Subjective: Pt seen, discussed with staff, chart reviewed. Calmer today though still angry about being in the hospital and not being able to go outside. He was able to reasonably discuss things with me today. Compliant with meds. Objective: Vital Signs Temp Pulse Resp BP Pulse Ox 36.3 C 83 12 106/59 L 97 07/23/16 06:00 07/23/16 06:00 07/23/16 06:00 07/23/16 06:00 07/23/16 06:00 MSE: Irritable, though appropriately interactive with me. Affect is o/w constricted, stable. Mood is "pissed off." TP circumstantial. TC reveals persecutory thoughts. - Time Spent With Patient Time Spent With Patient: 25" - Pending Discharge Pending Discharge Within 24 Hours: No ICD10 Worksheet Patient Problems: Problems Problem Status Onset Bipolar 1 disorder with moderate stacey Acute Suicidal ideation Acute Bipolar disorder Acute Suicidal ideation Acute
[2016-07-23] MEDS: OLANZapine DISINTEGR 10 MG TAB PO PRN ×2 (16:26→21:26)
[2016-07-23] MEDS: OLANZapine DISINTEGR 10 MG TAB PO SCH (20:47)
[2016-07-23] MEDS: LORazepam 0.5 MG TAB PO PRN (21:26)
[2016-07-23] MEDS ORDERED: OLANZapine 10 MG/2 ML VIAL IM ONE (22:00)
[2016-07-24] MEDS: LITHIUM CARBONATE ER 450 MG TAB PO SCH ×2 (10:54→19:32)
--- NOTE | 2016-07-24 19:18 | SOAPPROG ---
SOAP Progress Note Assessment/Plan: Assessment: Plan: 07/19/16 11:11 Will start E-meds due to verbal and physical aggression. Give Zyprexa and Ativan IM if he refuses PO. 07/23/16 15:41 Much improved overall. CCM. 07/24/16 19:22 Remains agitated, expansive. Needs more time on current adequate regimen to stabilize. CCM. Subjective: Pt seen, discussed with staff. Events of last night reviewed. Remains agitated and profane, yelling, swearing, pacing from room to nurses' station with many c/o's. Refuses to participate in therapies or 1:1 interactions. Objective: Vital Signs Temp Pulse Resp BP Pulse Ox 36.6 C 60 16 109/60 96 07/24/16 06:00 07/24/16 06:00 07/24/16 06:00 07/24/16 06:00 07/24/16 06:00 MSE: Agitated, pacing, swearing, hostile, uncoop. Affect is otherwise irritable, expansive. Mood is "shitty." TP disorganized, rambling. TC reveals persecutory ideas. - Time Spent With Patient Time Spent With Patient: 15" - Pending Discharge Pending Discharge Within 24 Hours: No Pending Discharge Within 48 Hours: No ICD10 Worksheet Patient Problems: Problems Problem Status Onset Bipolar 1 disorder with moderate stacey Acute Suicidal ideation Acute Bipolar disorder Acute Suicidal ideation Acute
[2016-07-24] MEDS: OLANZapine DISINTEGR 10 MG TAB PO SCH (19:32)
[2016-07-25] MEDS: ACETAMINOPHEN 325 MG TAB PO PRN (00:14)
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
[2016-07-25] MEDS: LITHIUM CARBONATE ER 450 MG TAB PO SCH ×2 (07:40→20:20)
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
[2016-07-25] MEDS: OLANZapine DISINTEGR 10 MG TAB PO SCH (20:20)
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
[2016-07-26] MEDS: LITHIUM CARBONATE ER 450 MG TAB PO SCH ×2 (10:24→19:32)
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
[2016-07-26] MEDS: OLANZapine DISINTEGR 10 MG TAB PO PRN (12:41)
[2016-07-26] MEDS: OLANZapine DISINTEGR 5 MG TAB PO SCH (19:32)
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
[2016-07-27] MEDS: LITHIUM CARBONATE ER 450 MG TAB PO SCH ×2 (09:00→20:08)
[2016-07-27] MEDS: OLANZapine DISINTEGR 5 MG TAB PO SCH (20:08)
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
[2016-07-28] MEDS: LITHIUM CARBONATE ER 450 MG TAB PO SCH ×2 (08:42→20:42)
[2016-07-28] MEDS: LORazepam 0.5 MG TAB PO PRN (10:02)
[2016-07-28] MEDS: OLANZapine DISINTEGR 10 MG TAB PO PRN (10:02)
[2016-07-28] MEDS ORDERED: LORazepam 0.5 MG TAB PO PRN (10:56)
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
[2016-07-28] MEDS: OLANZapine DISINTEGR 5 MG TAB PO SCH (20:42)
[2016-07-29 06:12] VITALS: O2SAT 94
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
[2016-07-29] MEDS: LITHIUM CARBONATE ER 450 MG TAB PO SCH ×2 (09:11→19:31)
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
[2016-07-29] MEDS: PALIPERIDONE 3 MG TAB.ER PO SCH (13:03)
[2016-07-29] MEDS: OLANZapine DISINTEGR 5 MG TAB PO SCH (19:31)
[2016-07-30] MEDS: PALIPERIDONE 3 MG TAB.ER PO SCH (09:02)
[2016-07-30] MEDS: LITHIUM CARBONATE ER 450 MG TAB PO SCH ×2 (09:02→19:25)
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
[2016-07-30] MEDS: OLANZapine DISINTEGR 5 MG TAB PO SCH (19:24)
[2016-07-31 06:20] VITALS: RESP 12
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
[2016-07-31] MEDS: PALIPERIDONE 3 MG TAB.ER PO SCH (07:48)
[2016-07-31] MEDS: LITHIUM CARBONATE ER 450 MG TAB PO SCH ×2 (07:49→19:57)
[2016-07-31] MEDS ORDERED: BACITRACIN OINTMENT 1 PACKET TP ONE (08:08)
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
[2016-07-31] MEDS: OLANZapine DISINTEGR 5 MG TAB PO SCH (19:58)
[2016-07-31] MEDS: ACETAMINOPHEN 325 MG TAB PO PRN (20:22)
[2016-08-01 06:15] VITALS: BP 121/77; PULSE 74; TEMP 97.7
[2016-08-01] MEDS: LITHIUM CARBONATE ER 450 MG TAB PO SCH (07:20)
[2016-08-01] MEDS: PALIPERIDONE 3 MG TAB.ER PO SCH (07:21)
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
[2016-08-01] MEDS ORDERED: PALIPERIDONE PALMITATE 234 MG/1.5 ML SYR IM ONE ×2 (09:00)
[2016-08-01] MEDS ORDERED: PALIPERIDONE PALMITATE 156 MG/ML SYR IM ONE (12:23)
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
[2016-08-01] MEDS ORDERED: LITHIUM CARBONATE ER 450 MG TAB PO SCH (21:00)
[2016-08-02] MEDS ORDERED: LITHIUM CARBONATE ER 450 MG TAB PO SCH (09:00)
[2016-08-02] MEDS ORDERED: OLANZapine 10 MG TAB PO SCH (09:00)
== END 2016-08-01 13:32 | disposition home or self-care (01) | DRG 885 ==
LOC: EDUNIT# → BBEH 07-17 14:50
PROVIDERS: ADMIT Psychiatry & Neurology Behavioral Neurology & Neuropsychiatry; ATTEND Psychiatry & Neurology Behavioral Neurology & Neuropsychiatry
DX: F31.64 Bipolar disorder, current episode mixed, severe, with psychotic features (principal); T43.596A Underdosing of other antipsychotics and neuroleptics, initial encounter
CPT/HCPCS: 80305; G0480; J2060; J2426